=== PATIENT | female | born 1985 | race Caucasian/White ===

== ENCOUNTER 2016-12-11 13:02 | Emergency (ER) | payer OTHER ==
[~2016-12-11] VITALS: Ht 157.5 cm; Wt 81.0 kg
[2016-12-11 13:05] VITALS: BP 128/95; PULSE 77; RESP 18; TEMP 99.1; O2SAT 98
[2016-12-11] MEDS ORDERED: SODIUM CHLOR 0.9% 1000 ML INJ 1,000 ML IV SCH (13:26)
--- NOTE | 2016-12-11 13:28 | PD ---
HPI Chief Complaint: GI Complaint Time Seen by Provider: 13:26 Travel History International Travel<30 days: No Contact w/Intl Traveler<30days: No Traveled to known affect area: No History of Present Illness HPI This is a 31-year-old female who has a history of ulcerative colitis who presents to the emergency department with 1 week of increasing lower abdominal cramping, constant, moderate severity associated with bright red blood in her stools and loose stools. She's been having more frequent diarrhea. This is similar to her prior flares of colitis. [place]. Prior to this she had been receiving Remicade and had her ulcerative colitis under good control. Here in [place] despite having insurance she's been unable to successfully get into a primary care physician. She does have an appointment with someone tomorrow who was a friend of her 's boss. [facility] Past Medical History Narrative Medical ulcerative colitis ?: Not Social History Tobacco Use: No Allergies-Medications (Allergen,Severity, Reaction): Coded Allergies: No Known Allergies (Unverified , 12/11/16) Reported Meds & Prescriptions Reported Meds & Active Scripts Active No Active Prescriptions or Reported Medications Review of Systems Except as stated in HPI: all other systems reviewed are Neg Physical Exam Narrative GENERAL:Well appearing, no acute distress SKIN: Focused skin assessment warm and dry. HEAD: Atraumatic. Normocephalic. EYES: Pupils equal and round. No injection or drainage. ENT: Moist mucous membranes NECK: Trachea midline. CARDIOVASCULAR: Regular rate and rhythm. No murmur appreciated. RESPIRATORY: Clear to auscultation. Breath sounds equal bilaterally. GASTROINTESTINAL: Abdomen soft, tender to palpation in the lower abdomen with no rebound or guarding. MUSCULOSKELETAL: No obvious deformities. NEUROLOGICAL: Awake and alert. No obvious cranial nerve deficits. Moving all extremities. PSYCHIATRIC: Appropriate mood and affect; insight and judgment normal. Data Data Last Documented VS Vital Signs Date Time Temp Pulse Resp B/P (MAP) Pulse Ox O2 Delivery O2 Flow Rate FiO2 12/11/16 13:53 63 120/76 (91) 12/11/16 13:51 16 12/11/16 13:40 96 12/11/16 13:05 99.1 Orders Orders Complete Blood Count With Diff (12/11/16 13:26) Comprehensive Metabolic Panel (12/11/16 13:26) Iv Access Insert/Monitor (12/11/16 13:26) Ecg Monitoring (12/11/16 13:26) Oximetry (12/11/16 13:26) Morphine Inj (Morphine Inj) (12/11/16 13:30) Sodium Chlor 0.9% 1000 Ml Inj (Ns 1000 M (12/11/16 13:26) Sodium Chloride 0.9% Flush (Ns Flush) (12/11/16 13:30) Methylprednisolone So Succ Inj (Solumedr (12/11/16 13:30) Labs Laboratory Tests Test 12/11/16 13:35 White Blood Count 8.4 TH/MM3 Red Blood Count 4.86 MIL/MM3 Hemoglobin 13.9 GM/DL Hematocrit 41.1 % Mean Corpuscular Volume 84.6 FL Mean Corpuscular Hemoglobin 28.6 PG Mean Corpuscular Hemoglobin Concent 33.8 % Red Cell Distribution Width 12.4 % Platelet Count 338 TH/MM3 Mean Platelet Volume 8.1 FL Neutrophils (%) (Auto) 59.7 % Lymphocytes (%) (Auto) 17.9 % Monocytes (%) (Auto) 7.3 % Eosinophils (%) (Auto) 11.9 % Basophils (%) (Auto) 3.2 % Neutrophils # (Auto) 5.1 TH/MM3 Lymphocytes # (Auto) 1.5 TH/MM3 Monocytes # (Auto) 0.6 TH/MM3 Eosinophils # (Auto) 1.0 TH/MM3 Basophils # (Auto) 0.3 TH/MM3 CBC Comment DIFF FINAL Differential Comment Blood Urea Nitrogen 7 MG/DL Creatinine 0.66 MG/DL Random Glucose 88 MG/DL Total Protein 7.9 GM/DL Albumin 3.7 GM/DL Calcium Level 8.8 MG/DL Alkaline Phosphatase 68 U/L Aspartate Amino Transf (AST/SGOT) 23 U/L Alanine Aminotransferase (ALT/SGPT) 27 U/L Total Bilirubin 0.3 MG/DL Sodium Level 137 MEQ/L Potassium Level 3.7 MEQ/L Chloride Level 106 MEQ/L Carbon Dioxide Level 23.6 MEQ/L Anion Gap 7 MEQ/L Estimat Glomerular Filtration Rate 106 ML/MIN [facility] Medical Decision Making Medical Screen Exam Complete: Yes Emergency Medical Condition: Yes Interpretation(s) Afebrile, no tachycardia, normotensive No leukocytosis Electrolytes are reassuring Differential Diagnosis Ulcerative colitis flare, abscess, sepsis, anemia Narrative Course This is a 31-year-old female who presents to the emergency department with lower abdominal discomfort and bloody stools. She has a known diagnosis of ulcerative colitis and has been not receiving Remicade infusions because she moved. She was placed on a monitor and an IV was established. Labs are obtained which were all reassuring. She was given IV steroids and pain control. She has a appointment with a primary care physician tomorrow. She appears well and I think she is appropriate for outpatient therapy. She'll be discharged on prednisone and pain control and was given a referral to the [facility]. Diagnosis Primary Impression: Ulcerative colitis Qualified Codes: K51.911 - Ulcerative colitis, unspecified with rectal bleeding Patient Instructions: General Instructions Additional Instructions: If you develop severe or worsening abdominal pain, fever>100.4, persistent vomiting or inability to eat or drink return to the emergency department immediately. Follow up with your primary care physician in 1-2 days for a check-up. Med/Other Pt SpecificInfo: Prescription(s) given Scripts Tramadol (Tramadol) 50 Mg Tab 50 MG PO Q6H Y for PAIN, #15 TAB 0 Refills Prov: Santa Bowen MD 12/11/16 Prednisone (48) 10 mg tab Dose Pack (Prednisone (48) 10 mg tab Dose Pack) 10 Mg Dspk 10 MG PO DIRECTED for Inflammation, #1 DSPK 0 Refills Prov: Santa Bowen MD 12/11/16 Disposition: 01 DISCHARGE HOME Condition: Stable Santa Bowen MD Dec 11, 2016 13:28
[2016-12-11] MEDS ORDERED: MORPHINE SULFATE 4 MG/ML INJ IV PUSH ONE (13:30)
[2016-12-11] MEDS ORDERED: methylPREDNISolone SOD SUCC 125 MG/2 ML VIAL IV PUSH ONE (13:30)
[2016-12-11] MEDS ORDERED: SODIUM CHLORIDE 0.9% FLUSH 10 ML FLUSH IV FLUSH PRN (13:30)
[2016-12-11 13:40] VITALS: O2SAT 96
[2016-12-11 13:47] LABS: AUTOMATED NEUTROPHIL # 5.1 TH/MM3 (1.8-7.7); BASOPHIL # 0.3 TH/MM3 (0-0.2); BASOPHIL % 3.2 % (0.0-2.0); EOSINOPHIL % 11.9 % (0.0-4.0); HEMATOCRIT 41.1 % (35.0-46.0); HEMO FLAGS DIFF FINAL; LYMPH % 17.9 % (9.0-44.0); LYMPHOCYTE # 1.5 TH/MM3 (1.0-4.8); MEAN CELL VOLUME 84.6 FL (80.0-100.0); MEAN CORPUSCULAR HEMOGLOBIN 28.6 PG (27.0-34.0); MEAN CORPUSCULAR HGB CONC 33.8 % (32.0-36.0); MONO % 7.3 % (0.0-8.0); NEUT % 59.7 % (16.0-70.0); PLATELET COUNT 338 TH/MM3 (150-450); RED BLOOD COUNT 4.86 MIL/MM3 (4.00-5.30); RED CELL DISTRIBUTION WIDTH 12.4 % (11.6-17.2); WHITE BLOOD COUNT 8.4 TH/MM3 (4.0-11.0)
[2016-12-11 13:51] VITALS: RESP 16
[2016-12-11 13:52] LABS: CHLORIDE 106 MEQ/L (98-107); POTASSIUM 3.7 MEQ/L (3.5-5.1); SODIUM (NA) 137 MEQ/L (136-145)
[2016-12-11 13:53] VITALS: BP 120/76; PULSE 63
[2016-12-11 13:56] LABS: ANION GAP 7 MEQ/L (5-15); BICARBONATE 23.6 MEQ/L (21.0-32.0); BLOOD UREA NITROGEN 7 MG/DL (7-18)
[2016-12-11 13:59] LABS: ALT (GPT) 27 U/L (10-53); AST (GOT) 23 U/L (15-37); GLOMERULAR FILTRATION RATE 106 ML/MIN (>89)
[2016-12-11 14:00] LABS: TOTAL BILIRUBIN ADULT 0.3 MG/DL (0.2-1.0)
[2016-12-11 14:02] LABS: ALKALINE PHOSPHATASE 68 U/L (45-117)
[2016-12-11] MEDS ORDERED: TRAM50TA PO (14:11)
[2016-12-11] MEDS ORDERED: PRED10PA2 PO (14:11)
== END 2016-12-11 14:39 | disposition home or self-care (01) ==
LOC: PHED 13:02
DX: K51.911 Ulcerative colitis, unspecified with rectal bleeding (principal)
CPT/HCPCS: 80053; 85025; 96374; 96375; 99284; J2270; J2930; J7030